=== PATIENT | male | born 1965 | race Caucasian/White ===

== ENCOUNTER 2020-05-01 18:54 | Emergency (ER) | payer MEDICAID, OTHER ==
[~2020-05-01] VITALS: Ht 175.3 cm; Wt 77.3 kg
[2020-05-01 19:53] LABS: BASO # 0.1 10^3/uL (0.0-0.2); BASO % 1.3 % (0.0-1.0); EOS # 0.3 10^3/uL (0.0-0.5); EOS % 3.3 % (0.0-3.0); HEMATOCRIT 42.7 % (42.0-52.0); HEMOGLOBIN 15.3 g/dl (13.5-17.5); LYMPH # 2.1 10^3/uL (1.5-5.0); LYMPH % 27.7 % (24.0-44.0); MEAN CORPUSCULAR HEMOGLOBIN 33.4 pg (27.0-33.0); MEAN CORPUSCULAR HGB CONC 35.8 g/dl (32.0-36.5); MEAN CORPUSCULAR VOLUME 93.2 fl (80.0-96.0); MONO # 0.8 10^3/uL (0.0-0.8); MONO % 10.2 % (0.0-5.0); NEUTROPHILS # 4.3 10^3/uL (1.5-8.5); PLATELET COUNT, AUTOMATED 228 10^3/uL (150-450); RED BLOOD COUNT 4.58 10^6/uL (4.30-6.10); WHITE BLOOD COUNT 7.6 10^3/uL (4.0-10.0)
[2020-05-01 20:25] LABS: BLOOD UREA NITROGEN 5 MG/DL (7-18); CALCIUM LEVEL 8.2 MG/DL (8.5-10.1); CARBON DIOXIDE LEVEL 24 MEQ/L (21-32); CHLORIDE LEVEL 99 MEQ/L (98-107); CREATININE FOR GFR 0.69 MG/DL (0.70-1.30); ETHYL ALCOHOL (ETHANOL) 0.481 % (0.000-0.010); GLOMERULAR FILTRATION RATE > 60.0 (>56); GLUCOSE, FASTING 98 MG/DL (70-100); POTASSIUM SERUM 4.1 MEQ/L (3.5-5.1); SODIUM LEVEL 133 MEQ/L (136-145)
[2020-05-01] MEDS ORDERED: diphenhydrAMINE 50MG/ML VIAL (J1200) IV STA (20:34)
[2020-05-01] MEDS ORDERED: HALOPERIDOL 5MG/ML VIAL (J1630 PER 1) IM STA ×2 (20:34→21:08)
[2020-05-01 20:54] LABS: AMPHETAMINES LEVEL URINE NEGATIVE (NEGATIVE); BARBITURATES URINE NEGATIVE (NEGATIVE); BENZODIAZEPINES URINE NEGATIVE (NEGATIVE); CANNABINOIDS URINE POSITIVE (NEGATIVE); COCAINE METABOLITE URINE NEGATIVE (NEGATIVE); METHADONE URINE NEGATIVE (NEGATIVE); OPIATES URINE NEGATIVE (NEGATIVE); PHENCYCLIDINE URINE NEGATIVE (NEGATIVE)
--- NOTE | 2020-05-01 22:02 | REPVR ---
PROCEDURE INFORMATION: Exam: CT Cervical Spine Without Contrast Exam date and time: 05/01/2020 9:44 PM Age: 54 years old Clinical indication: Injury or trauma; Fall; Initial encounter; Blunt trauma TECHNIQUE: Imaging protocol: Computed tomography images of the cervical spine without contrast. Radiation optimization: All CT scans at this facility use at least one of these dose optimization techniques: automated exposure control; mA and/or kV adjustment per patient size (includes targeted exams where dose is matched to clinical indication); or iterative reconstruction. COMPARISON: No relevant prior studies available. FINDINGS: Vertebrae: There is no acute fracture or subluxation in the cervical spine. The alignment of the cervical spine is within normal limits. There are chronic mild anterior wedge compression deformities of C7, T1, and T2. No radiolucent fracture line or retropulsion of the cortex is noted. Discs/Spinal canal/Neural foramina: The disc heights are preserved. No spinal canal stenosis or neural foraminal stenosis is identified at any of the imaged levels. The facet joints are unremarkable. Prevertebral Space: No prevertebral soft tissue swelling is noted. Soft tissues: Unremarkable. No soft tissue fluid collection is noted. Lungs: There are centrilobular emphysematous changes in the lung apices. The lungs were not fully imaged. Vasculature: There are atherosclerotic calcifications. IMPRESSION: 1. No acute fracture or subluxation in the cervical spine. 2. Chronic mild anterior wedge compression deformities of C7, T1, and T2. Electronically signed by: Luis Chaparro On 05/01/2020 22:02:15 PM
--- NOTE | 2020-05-01 22:02 | REPVR ---
PROCEDURE INFORMATION: Exam: CT Head Without Contrast Exam date and time: 05/01/2020 9:44 PM Age: 54 years old Clinical indication: Altered mental status/memory loss; Confusion or disorientation; Additional info: AMS TECHNIQUE: Imaging protocol: Computed tomography of the head without contrast. Radiation optimization: All CT scans at this facility use at least one of these dose optimization techniques: automated exposure control; mA and/or kV adjustment per patient size (includes targeted exams where dose is matched to clinical indication); or iterative reconstruction. COMPARISON: No relevant prior studies available. FINDINGS: Brain: There is no evidence for an acute large vessel territorial infarct, intracranial hemorrhage, mass, mass effect, midline shift, or herniation. There are mild non-specific foci of low attenuation in the periventricular and subcortical white matter, which are likely the sequela of chronic small vessel ischemic injury. Ventricles: The ventricles are mildly dilated in proportion to the sulci, which is compatible with mild generalized cerebral volume loss. Bones/joints: The skull is intact. No suspicious osteolytic or osteoblastic lesion. Sinuses: There is moderate opacification of the right maxillary sinus, severe opacification in of the right maxillary sinus, and mild opacification of the left ethmoid sinus. There is sclerosis and thickening of the chung of the right maxillary sinus. The sinuses were not fully imaged. Mastoid air cells: Clear. Auditory system: There are soft tissues opacities in the external auditory canals, which likely represent cerumen. Soft tissues: The middle ear spaces are clear. IMPRESSION: 1. No acute intracranial abnormality. 2. Mild cerebral atrophy and chronic microangiopathic changes. Electronically signed by: Luis Chaparro On 05/01/2020 22:02:28 PM
[2020-05-02 01:45] VITALS: BP 111/60
== END 2020-05-02 02:28 | disposition home or self-care (01) ==
LOC: M ED 18:54
DX: F10.129 Alcohol abuse with intoxication, unspecified (principal); Y90.2 Blood alcohol level of 40-59 mg/100 ml; F91.9 Conduct disorder, unspecified
CPT/HCPCS: 70450; 72125; 80048; 80307; 85025; 96372; 96374; 99285; G0480; J1200; J1630

== ENCOUNTER 2021-04-10 20:26 | Emergency (ER) | payer OTHER ==
[~2021-04-10] VITALS: Ht 172.7 cm; Wt 61.4 kg
[2021-04-10] MEDS ORDERED: BOOSTRIX/ADACEL VACCINE (DIPHTH/PERTUSS/ACELL/TETANUS) 0.5ML SYR IM ONE (20:40)
--- NOTE | 2021-04-10 21:08 | REPVR ---
PROCEDURE INFORMATION: Exam: CT Head Without Contrast Exam date and time: 04/10/2021 8:46 PM Age: 55 years old Clinical indication: Injury or trauma; Fall; Blunt trauma (contusions or hematomas) TECHNIQUE: Imaging protocol: Computed tomography of the head without contrast. Radiation optimization: All CT scans at this facility use at least one of these dose optimization techniques: automated exposure control; mA and/or kV adjustment per patient size (includes targeted exams where dose is matched to clinical indication); or iterative reconstruction. COMPARISON: CT Head without contrast 05/01/2020 9:40 PM FINDINGS: Brain: There is mild diffuse cerebellar atrophy. There is mild parenchymal volume loss. Mild white matter changes are demonstrated consistent with chronic small vessel ischemic changes, stable. Cerebral ventricles: The degree of ventricular dilatation is normal for age and/or degree of atrophy present. Bones/joints: Unremarkable. No acute fracture. Paranasal sinuses: Inflammatory changes demonstrated in both maxillary and ethmoid sinuses. Mastoid air cells: Visualized mastoid air cells are well aerated. Auditory system: Retained secretions demonstrated in the right and left external auditory canals. Soft tissues: Unremarkable. IMPRESSION: 1. There is mild diffuse cerebellar atrophy. 2. There is mild parenchymal volume loss. Mild white matter changes are demonstrated consistent with chronic small vessel ischemic changes, stable. 3. The degree of ventricular dilatation is normal for age and/or degree of atrophy present. Electronically signed by: Ross Floyd On 04/10/2021 21:07:44 PM
--- NOTE | 2021-04-10 21:11 | REPVR ---
PROCEDURE INFORMATION: Exam: CT Cervical Spine Without Contrast Exam date and time: 04/10/2021 8:46 PM Age: 55 years old Clinical indication: Injury or trauma; Fall; Blunt trauma TECHNIQUE: Imaging protocol: Computed tomography images of the cervical spine without contrast. Radiation optimization: All CT scans at this facility use at least one of these dose optimization techniques: automated exposure control; mA and/or kV adjustment per patient size (includes targeted exams where dose is matched to clinical indication); or iterative reconstruction. COMPARISON: CT Spine,cervical w/o contrast 05/01/2020 9:40 PM FINDINGS: Bones/joints: No acute fracture. Normal alignment. Discs/Spinal canal/Neural foramina: Mild bilateral foraminal stenosis at C5 and C6 secondary to uncinate joint hypertrophic changes. Auditory system: Retained secretions both external auditory canals. Lungs: Mild emphysematous changes in the upper lung zones. Soft tissues: Unremarkable. IMPRESSION: Mild degenerative spondylosis. No acute findings. Electronically signed by: Ross Floyd On 04/10/2021 21:10:54 PM
[2021-04-10 21:17] LABS: BASO # 0.1 10^3/uL (0.0-0.2); BASO % 1.5 % (0.0-1.0); EOS # 0.2 10^3/uL (0.0-0.5); HEMATOCRIT 42.1 % (42.0-52.0); HEMOGLOBIN 14.8 g/dl (13.5-17.5); LYMPH # 2.2 10^3/uL (1.5-5.0); LYMPH % 41.1 % (24.0-44.0); MEAN CORPUSCULAR HEMOGLOBIN 34.1 pg (27.0-33.0); MEAN CORPUSCULAR HGB CONC 35.2 g/dl (32.0-36.5); MONO # 0.6 10^3/uL (0.0-0.8); MONO % 11.6 % (2.0-8.0); NEUTROPHILS # 2.3 10^3/uL (1.5-8.5); NEUTROPHILS % 41.2 % (36.0-66.0); PLATELET COUNT, AUTOMATED 276 10^3/uL (150-450); RED BLOOD COUNT 4.34 10^6/uL (4.30-6.10); WHITE BLOOD COUNT 5.5 10^3/uL (4.0-10.0)
--- NOTE | 2021-04-10 21:23 | REPVR ---
PROCEDURE INFORMATION: Exam: XR Chest Exam date and time: 04/10/2021 8:56 PM Age: 55 years old Clinical indication: Other: Trauma TECHNIQUE: Imaging protocol: XR of the chest. Views: 1 view. COMPARISON: No relevant prior studies available. FINDINGS: Lungs: Unremarkable. No consolidation. Pleural spaces: Unremarkable. No pleural effusion. No pneumothorax. Heart/Mediastinum: Unremarkable. No cardiomegaly. Bones/joints: Unremarkable. IMPRESSION: No acute findings. Electronically signed by: Ross Floyd On 04/10/2021 21:22:29 PM
--- NOTE | 2021-04-10 21:24 | REPVR ---
PROCEDURE INFORMATION: Exam: XR Left Shoulder Exam date and time: 04/10/2021 8:56 PM Age: 55 years old Clinical indication: Other: Trauma TECHNIQUE: Imaging protocol: XR Left shoulder. Views: 2 or more views. COMPARISON: No relevant prior studies available. FINDINGS: Bones/joints: Comminuted fracture left humeral neck. Osteoporosis. Soft tissues: Normal. IMPRESSION: Comminuted fracture left humeral neck. Electronically signed by: Ross Floyd On 04/10/2021 21:23:52 PM
[2021-04-10 21:46] LABS: BLOOD UREA NITROGEN 4 MG/DL (7-18); CALCIUM LEVEL 8.6 MG/DL (8.5-10.1); CARBON DIOXIDE LEVEL 25 MEQ/L (21-32); CHLORIDE LEVEL 98 MEQ/L (98-107); CREATININE FOR GFR 0.58 MG/DL (0.70-1.30); ETHYL ALCOHOL (ETHANOL) 0.389 % (0.000-0.010); GLOMERULAR FILTRATION RATE > 60.0 (>56); GLUCOSE, FASTING 102 MG/DL (70-100); POTASSIUM SERUM 3.6 MEQ/L (3.5-5.1); SODIUM LEVEL 132 MEQ/L (136-145)
[2021-04-10] MEDS ORDERED: KETOROLAC 30 MG/ML 1ML VIAL IV ONE (22:15)
[2021-04-11 04:04] VITALS: BP 143/79
== END 2021-04-11 04:08 | disposition home or self-care (01) ==
LOC: M ED 20:26
DX: S42.215A Unspecified nondisplaced fracture of surgical neck of left humerus, initial encounter for closed fracture (principal); W01.0XXA Fall on same level from slipping, tripping and stumbling without subsequent striking against object, initial encounter; Y92.019 Unspecified place in single-family (private) house as the place of occurrence of the external cause; Y93.9 Activity, unspecified; Y99.9 Unspecified external cause status; F10.129 Alcohol abuse with intoxication, unspecified; M80.021A Age-related osteoporosis with current pathological fracture, right humerus, initial encounter for fracture; G31.9 Degenerative disease of nervous system, unspecified; M47.812 Spondylosis without myelopathy or radiculopathy, cervical region; Z23 Encounter for immunization
CPT/HCPCS: 70450; 71045; 72125; 73030; 80048; 82077; 85025; 90471; 90715; 96374; 99285; J1885